=== PATIENT | male | born 1990 | race Caucasian/White ===

== ENCOUNTER 2023-09-26 15:59 | Emergency (ER) | payer OTHER ==
[~2023-09-26] VITALS: Ht 172.7 cm; Wt 72.7 kg
[2023-09-26 16:03] VITALS: TEMP 97.6
[2023-09-26 16:23] LABS: BASO # 0.1 K/mm3 (0.0-0.2); BASO % 0.3 % (0.0-2.0); EOS # 0.1 K/mm3 (0.0-0.7); EOS % 0.7 % (0.0-4.0); GRAN # 10.7 K/mm3 (1.4-6.5); GRAN % 74.6 % (42.2-75.2); HEMATOCRIT 40.4 % (42.0-52.0); HEMOGLOBIN 14.5 g/dl (13.5-18.0); LYMPH # 2.5 K/mm3 (1.2-3.4); LYMPH % 17.6 % (20.0-51.0); MEAN CELL VOLUME 88 fl (80.0-100.0); MEAN CORPUSCULAR HEMOGLOBIN 32 pg (27-31); MEAN CORPUSCULAR HGB CONC 36 g/dl (33.0-37.0); MEAN PLATELET VOLUME 10.2 fl (7.4-10.4); MONO # 0.9 K/mm3 (0.1-0.6); MONO % 6.4 % (1.7-9.3); PLATELET COUNT 302 K/mm3 (130-400); RED BLOOD COUNT 4.57 M/mm3 (4.20-5.60); REDCELL DISTRIBUTION WIDTH-CV 12.2 % (11.5-14.5)
[2023-09-26] MEDS ORDERED: Ondansetron 4 MG/2 ML VIAL IV ONE (16:30)
[2023-09-26] MEDS ORDERED: LR 1,000 ML IV ONE (16:30)
[2023-09-26] MEDS ORDERED: Ketorolac 15 MG/ML VIAL IV ONE (16:30)
[2023-09-26 16:45] LABS: ALBUMIN 4.2 gm/dL (3.5-5.0); BILIRUBIN,TOTAL 0.4 mg/dL (0.2-1.2); CALCIUM 9.4 mg/dL (8.4-10.2); CREATININE, serum 0.87 mg/dL (0.72-1.25); POTASSIUM 3.7 mmol/L (3.5-4.5); TOTAL PROTEIN 7.5 gm/dL (6.2-8.1)
[2023-09-26] MEDS ORDERED: Iohexol 300 - 100 ML VIAL IV ONE (17:18)
[2023-09-26] MEDS ORDERED: NS 100 ML IV SCH (17:19)
[2023-09-26] MEDS ORDERED: PEPCID 20MG TAB20 MG PO (18:06)
[2023-09-26] MEDS ORDERED: ZOFRAN ODT4 MG PO (18:06)
[2023-09-26] MEDS ORDERED: BENTYL 10MG10 MG/CAP PO (18:06)
[2023-09-26] MEDS ORDERED: Home Ondansetron ODT 4 MG #2 ODT/PACK PO ONE (18:15)
[2023-09-26 18:42] VITALS: BP 144/68; PULSE 76
== END 2023-09-26 18:42 | disposition home or self-care (01) ==
LOC: COL.ER 15:59
PROVIDERS: Emergency Medicine
DX: R10.84 Generalized abdominal pain (principal); R11.0 Nausea; D72.829 Elevated white blood cell count, unspecified
CPT/HCPCS: J1885; J2405; J7120; Q9967